=== PATIENT | male | born 1985 | race Hispanic/Latino ===

== ENCOUNTER 2022-08-04 18:01 | Emergency (ER) | payer MEDICAID ==
[~2022-08-04] VITALS: Ht 160 cm; Wt 104.3 kg
[2022-08-04 18:31] VITALS: BP 146/80
== END 2022-08-04 19:31 | disposition left against medical advice (07) ==
LOC: EDH 18:01
DX: M54.9 Dorsalgia, unspecified (principal); Z20.822 Contact with and (suspected) exposure to COVID-19
CPT/HCPCS: 99281